=== PATIENT | female | born 1950 | race Caucasian/White ===

== ENCOUNTER → 2016-09-01 | Outpatient (CLI) | payer OTHER | LOC: FIMAGING 07:30 | DX: Z12.31 Encounter for screening mammogram for malignant neoplasm of breast (principal); Z85.3 Personal history of malignant neoplasm of breast; Z92.3 Personal history of irradiation | CPT/HCPCS: G0202 ==

== ENCOUNTER → 2017-09-03 | Outpatient (CLI) | payer OTHER, MEDICARE | LOC: FIMAGING 07:58 | PROVIDERS: ATTEND Internal Medicine Hematology & Oncology | DX: Z12.31 Encounter for screening mammogram for malignant neoplasm of breast (principal); Z85.3 Personal history of malignant neoplasm of breast ==

== ENCOUNTER → 2018-01-05 | Outpatient (CLI) | payer OTHER, MEDICARE | LOC: FIMAGING 14:00 | PROVIDERS: ATTEND Internal Medicine Hematology & Oncology | DX: Z13.820 Encounter for screening for osteoporosis (principal); M81.0 Age-related osteoporosis without current pathological fracture; E07.9 Disorder of thyroid, unspecified; Z95.0 Presence of cardiac pacemaker; Z85.3 Personal history of malignant neoplasm of breast ==

== ENCOUNTER 2018-06-14 09:14 | Emergency (ER) | payer OTHER, MEDICARE ==
--- NOTE | 2018-06-14 09:37 | EDPHY ---
General Time Seen by Provider: 06/14/18 09:36 Narrative: CLINICAL IMPRESSION: Elevated blood pressure, shortness of breath with exertion ASSESSMENT/PLAN: Patient is a 68-year-old female with a history of hypertension and remote breast cancer who presents with an isolated event of shortness of breath with exertion and elevated blood pressure. Patient is afebrile, she is not toxic appearing and in no acute distress. Her neurological exam is grossly normal with no focal deficit. ECG revealed normal sinus rhythm, no evidence of acute ischemia; this was reviewed by myself and Dr. Phelps. Troponin was negative, TSH was within normal limits. CBC and metabolic panel were obtained which were grossly normal, no evidence of CELE. Chest x-ray with mildly enlarged heart, otherwise unremarkable. Patient has recently taken herself off of her prescribed antihypertensives and started her 's as she felt that hers was not working. There were no indications of stroke, ACS, PE, pneumonia, hypertensive emergency or urgency, we feel that she is safe for her blood pressure to be managed on outpatient basis and did not have any indication to treat her in the emergency department. Patient is well established with her primary care provider, she has an appointment scheduled this afternoon at 2:15 p.m. Conservative return precautions discussed-she will return for development of headache, dizziness, visual changes, chest pain, worsening shortness of breath or for any other concerning symptom. Patient verbalized understanding she is in agreement with this plan. DIFFERENTIAL DX: Differential diagnosis to include but not limited to stroke, hypertensive emergency, hypertensive urgency, elevated blood pressure, ACS ED COURSE: 954: Case discussed with Dr. Phelps CHIEF COMPLAINT: Elevated blood pressure, shortness of breath HPI: Patient is a 68-year-old female with a history of hypertension, hypothyroidism and remote breast cancer who presents to the emergency department with elevated blood pressure and complaints of shortness of breath. Patient with longstanding history of hypertension, prescribed 100 mg of losartan. Patient reports 2 weeks ago her blood pressures were higher than normal, she discontinued her losartan and started taking her 's lisinopril 10 mg. Patient has been taking the lisinopril for the last 2 weeks without improvement of her blood pressure, noted her blood pressure to be 180/90 this morning and took an additional lisinopril. 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 She was feeling anxious about her blood pressure, she started to climb 3 flights of stair when she started to feel short of breath which is unusual for her. Patient denies any chest pain, dizziness, visual changes, abdominal pain or lower extremity swelling. She denies any shortness of breath at rest. She has had no recent fever, runny nose , congestion or cough. She has not been taking any [id number] cold medications. PAST MEDICAL HISTORY: Hypertension, hypothyroidism and remote breast cancer Family History: Noncontributory Social History: Denies smoking or illicit drug use ROS: A full 10 point review of systems was negative except for those mentioned in HPI. PHYSICAL EXAM: General Appearance: Alert, oriented, appropriate, cooperative, NAD, well hydrated, non-toxic appearing, VSS, no hypoxia. HEENT: TMs are clear bilaterally no perforation or FB, no injection, no evidence of serous or mucopurulent otitis. Oropharynx clear is no erythema or exudates, no tonsillar hypertrophy or asymmetry. Dentition without abnormality. Eyes: [PERRLA, no acute vision change, nystagmus, swelling, discharge, pain or photosensitivity. Conjunctiva pink, no pallor or injection. Funduscopic exam- no papilledema, retinal hemorrhages or cotton wool spots observed (w/out eye dilated). Neck: Supple, nontender, no lymphadenopathy, no midline pain, FROM, no meningismus. Respiratory: There are no retractions, lungs are clear to auscultation. Cardiac: Regular rate and rhythm, no murmurs or gallops. Gastrointestinal: Abdomen is soft, nontender, bowel sounds normal, no masses/ hernia, no rigidity, guarding or focal peritoneal findings. Neuro: MENTAL STATUS: Patient is alert and oriented to person, place, time, and situation. Recent and remote memory are intact. Attention and concentration are normal. Found knowledge is appropriate to level of education. Mood and affect normal. SPEECH: Language including naming, repetition, comprehension, and spontaneous speech are normal. No dysarthria or dysphagia. CRANIAL NERVES: II: Visual paz are full to confrontation. Vision is grossly intact. III, IV, : Pupils are equal, round, reactive to light. Extraocular eye movements are full and without nystagmus. V: Facial sensation is intact to touch symmetrically in all 3 divisions. VII: Face is symmetric at rest with no asymmetry of grimace or evidence of facial weakness. VIII: Hearing is intact bilaterally to finger rub. IX, X: Palate is midline and elevates symmetrically with intact cough/gag. XI: Sternocleidomastoid and trapezius strength is normal. XII: Tongue protrudes midline without atrophy or fasciculations. MOTOR: Normal bulk and tone symmetrically in the upper and lower extremities. Upper extremities: shoulder abduction, elbow flexion, elbow extension, flexion of fingers and finger abduction strength 5/5 bilaterally. Lower extremities: hip flexion, knee flexion and extension, plantar and dorsiflexion of foot, and great toe extension strength 5/5 bilaterally. No pronator drift. SENSORY: Sensation is intact to light touch and symmetric in the UE's in LE's bilaterally. Romberg is negative. COORDINATION: Fine motor and rapid alternating movements are normal. Finger to nose is normal bilaterally. [id number] is normal bilaterally. No abnormal movements noted. There is no tremor at rest or with posture or action. GAIT/STATION: Casual, straightforward gait is normal. Patient can walk on toes and on heels. No gait instability. Skin: Warm, dry, no rashes, no nodules on palpation. MEDICAL DECISION MAKING: Patient was seen independently. Secondary supervising physician at time of evaluation was Dr. Phelps, I discussed this case with him however he did not evaluate this patient. Diagnosis: Elevated blood pressure, shortness of breath. New, requires workup Summary: See Assessment and Plan for summary of ED visit Clinical lab tests: Yes. Independent visualization of images, tracing, or specimens: Yes. Decision to obtain medical records or history from someone other than the patient: No Review / Summarize previous medical records: Yes Discussed patient with another provider: Yes, Dr. Phelps Patient Progress: Stable, discharged. (Martha Valenzuela) Medical Decision Making: I did not see this patient while she was in the emergency department. However her care was discussed with the PA while the patient was in the department. I agree with treatment plan and management (Fabrice Phelps) - Diagnostics EKG Interpretation: EKG interpreted by me shows normal sinus rhythm normal interval and axis. QRS is normal there is no significant ST elevation or depression. No arrhythmia. Rate is 62 (Mattie,Fabrice S) Imaging Results: Imaging Impressions Chest X-Ray 06/14/18 09:58 Impression: Borderline enlarged heart size. - Objective Vital Signs: Initial Vital Signs Temperature (C) 36.6 C 06/14/18 09:17 Heart Rate 71 06/14/18 09:17 Respiratory Rate 18 06/14/18 09:17 Blood Pressure 166/98 H 06/14/18 09:17 O2 Sat (%) 98 06/14/18 09:17 O2 Delivery Mode Room Air Allergies/Adverse Reactions: Penicillins Allergy (Unknown, Verified 07/28/12 12:58) Home Medications: Medication Instructions Recorded Ativan 06/14/18 Lisinopril 06/14/18 Synthroid 06/14/18 Laboratory Results: Laboratory Results 06/14/18 10:08 06/14/18 09:58 06/14/18 06/14/18 06/14/18 10:11 10:08 09:58 WBC 4.43 10^3/uL 10^3/uL (3.80-9.50) RBC 4.37 10^6/uL 10^6/uL (4.18-5.33) Hgb 14.0 g/dL g/dL (12.6-16.3) Hct 40.2 % % (38.0-47.0) MCV 92.0 fL fL (81.5-99.8) MCH 32.0 pg pg (27.9-34.1) MCHC 34.8 g/dL g/dL (32.4-36.7) RDW 11.9 % % (11.5-15.2) Plt Count 239 10^3/uL 10^3/uL (150-400) MPV 9.1 fL fL (8.7-11.7) Neut % (Auto) 61.2 % % (39.3-74.2) Lymph % (Auto) 29.3 % % (15.0-45.0) [place] % (Auto) 8.6 % % (4.5-13.0) Eos % (Auto) 0.5 % L % (0.6-7.6) Baso % (Auto) 0.2 % L % (0.3-1.7) Nucleat RBC Rel Count 0.0 % % (0.0-0.2) Absolute Neuts (auto) 2.71 10^3/uL 10^3/uL (1.70-6.50) Absolute Lymphs (auto) 1.30 10^3/uL 10^3/uL (1.00-3.00) Absolute Monos (auto) 0.38 10^3/uL 10^3/uL (0.30-0.80) Absolute Eos (auto) 0.02 10^3/uL L 10^3/uL (0.03-0.40) Absolute Basos (auto) 0.01 10^3/uL L 10^3/uL (0.02-0.10) Absolute Nucleated RBC 0.00 10^3/uL 10^3/uL (0-0.01) Immature Gran % 0.2 % % (0.0-1.1) Immature Gran # 0.01 10^3/uL 10^3/uL (0.00-0.10) Sodium 142 mEq/L mEq/L (135-145) Potassium 4.1 mEq/L mEq/L (3.5-5.2) Chloride 111 mEq/L H mEq/L (97-110) Carbon Dioxide 24 mEq/l mEq/l (22-31) Anion Gap 7 mEq/L mEq/L (6-14) BUN 19 mg/dL mg/dL (7-23) Creatinine 0.7 mg/dL mg/dL (0.6-1.0) Estimated GFR > 60 Glucose 94 mg/dL mg/dL (70-100) Calcium 9.8 mg/dL mg/dL (8.5-10.4) POC Troponin I 0.00 ng/mL ng/mL (0.00-0.08) TSH 1.280 uIU/mL uIU/mL (0.465-4.680) Point of Care Test Results: Chemistry 06/14/18 10:11 POC Troponin I 0.00 ng/mL ng/mL (0.00-0.08) Departure - Departure Disposition: Home, Routine, Self-Care Clinical Impression: Hypertension Condition: Good Instructions: Hypertension (ED) Additional Instructions: DISCHARGE INSTRUCTIONS FROM YOUR DOCTOR Thank you for visiting our emergency department today. Please keep in mind that discharge from the emergency department does not mean that there is nothing wrong - it simply means that we have not identified an emergency condition that requires further evaluation or treatment in the hospital. Rest, healthy/regular sleep schedule, push fluids, healthy diet, regular exercise. Attempt to reduce stress. Pursue pleasurable, healthy activities. Surround yourself with loving, supportive, healthy friends and family. Please return for development of dizziness, visual changes, focal weakness, chest pain, increased shortness of breath or for any other concerning symptom. People present with illnesses and injuries in different ways, and it is always possible that we have missed something. You may always return for re-evaluation if symptoms worsen or if they are not improving or if you develop new/different symptoms. Again, thank you for choosing our emergency department. We hope that you feel better. Referrals: Seema Coombs MD [Primary Care Provider] - 1 day without fail (Today as scheduled)
[2018-06-14 10:44] LABS: PLATELET COUNT 239 10^3/uL (150-400)
[2018-06-14 11:49] VITALS: BP 179/98
--- NOTE | 2018-06-14 15:07 | CPEKG ---
Test Reason : OPEN Blood Pressure : / mmHG Vent. Rate : 062 BPM Atrial Rate : 061 BPM P-R Int : 160 ms QRS Dur : 094 ms QT Int : 413 ms P-R-T Axes : 067 034 028 degrees QTc Int : 420 ms Sinus rhythm Confirmed by Kamala Phelps ([id number]) on 06/14/2018 3:06:45 PM Referred By: KAMALA PHELPS Confirmed By:Kamala Phelps
== END 2018-06-14 11:49 | disposition home or self-care (01) ==
DX: I10 Essential (primary) hypertension (principal); R06.02 Shortness of breath; E03.9 Hypothyroidism, unspecified; Z85.3 Personal history of malignant neoplasm of breast; Z88.0 Allergy status to penicillin
CPT/HCPCS: 84484-ER

== ENCOUNTER → 2018-08-03 | Outpatient (CLI) | payer OTHER, MEDICARE | LOC: BHFA 13:15 | PROVIDERS: ATTEND Internal Medicine Cardiovascular Disease | DX: R06.02 Shortness of breath (principal); I10 Essential (primary) hypertension ==

== ENCOUNTER → 2018-10-10 | Outpatient (CLI) | payer OTHER, MEDICARE | LOC: FIMAGING 08:01 ==